=== PATIENT | female | born 1985 | race Caucasian/White ===

== ENCOUNTER 2021-07-07 05:17 | Emergency (ER) | payer MEDICAID ==
[~2021-07-07] VITALS: Ht 167.6 cm; Wt 63.6 kg
[2021-07-07 05:24] VITALS: BP 136/108
[2021-07-07] MEDS ORDERED: CIPR10DR RIGHT EAR (05:41)
[2021-07-07] MEDS ORDERED: Cipro HC otic suspension 10ML bottle RIGHT EAR STA (05:42)
== END 2021-07-07 06:03 | disposition home or self-care (01) ==
LOC: ER 05:17
DX: H60.91 Unspecified otitis externa, right ear (principal); H92.01 Otalgia, right ear
CPT/HCPCS: 99283